=== PATIENT | female | born 1960 | race Caucasian/White ===

== ENCOUNTER → 2019-05-19 06:23 | Outpatient (CLI) | payer OTHER, SELFPAY ==
[2019-05-19 08:30] LABS: Cholesterol 168 mg/dL (200); High Density Lipoprotein 55 mg/dL; Triglycerides 152 mg/dL; Very Low Density Lipoprotein 30 mg/dL (5-40)
--- NOTE | 2019-05-19 13:30 | STRESSREP ---
Stress Test Report Stress Test Report Date: 05-19-19 Procedure: Exercise tolerance test/imaging study Indications: CAD; status post PCI Consent: Per the patient Procedure: The patient exercised on a Oneli protocol for 8 minutes completing Stage II and 2 minutes of Stage III achieving a peak heart rate of 151 bpm (92 % predicted maximal heart rate) with a peak blood pressure 184/72 mmHg and a peak MET capacity of 9 METs. The baseline ECG demonstrated normal sinus rhythm. The peak exercise ECG demonstrated [id number] nonspecific ST segment variability. There were no cardiac dysrhythmias pretest, during exercise, or recovery. The functional capacity was considered good. There was no complaint of chest discomfort during exercise or recovery. The examination was discontinued secondary to dyspnea. Impression: 1. Technically adequate (percent predicted maximal heart rate greater than 85%) exercise tolerance test 2. Peak exercise ECG with [id number] nonspecific ST segment variability 3. There were no cardiac dysrhythmias pretest, during exercise, or recovery 4. Nuclear images pending Myocardial perfusion imaging study: Technique: The patient was injected with 11.9 mCi of technetium 99m Cardiolite and subsequently rest SPECT Cardiolite nuclear imaging was obtained in the horizontal long, vertical long, and short axis views. The patient exercised on a Oneil protocol for 8 minutes completing Stage II and 2 minutes of Stage III achieving a peak heart rate of 151 bpm (92 % predicted maximal heart rate) with a peak blood pressure 184/72 mmHg and a peak MET capacity of 9 METs. The patient was injected with 34.1 mCi of technetium 99m Cardiolite and subsequently stress SPECT Cardiolite nuclear imaging was obtained in the horizontal long, vertical long, and short axis views. A gated Cardiolite study at peak stress was obtained. Interpretation: Rest and stress SPECT Cardiolite nuclear imaging status post realignment, normalization, and attenuation correction, demonstrates the appearance at rest of an area of diminished tracer uptake in portions of the distal anterior/anterior apical segments. Status post stress there are similar type findings although somewhat potentially more prominent. There is end systolic thickening and brightening. The gated Cardiolite study demonstrates diminished myocardial thickening/inward wall motion in the distal anterior segments. The reported LVEF is 68 %. Impression: 1. Rest and stress SPECT Cardiolite nuclear imaging demonstrate myocardial perfusion changes potentially compatible with an shifting soft tissue attenuation/artifact although an area of previous myocardial injury in the distal anterior/anterior apical segments with post stress related changes compatible with ahmet-infarct related myocardial ischemia cannot necessarily be excluded. 2. The gated Cardiolite study reports an LVEF of 68 %. This note was generated with [employer] software. It may contain incorrect words, spelling, and punctuation that were not noted in checking the note before signing. 05/19/19904 <Electronically signed by Олег Shook MD> Date Олег Shook MD CC: Julio Kee; Erich Drew III, MD; Олег Shook MD ~ Date Dictated: 05/19/19856 Date Transcribed: 05/19/19856 Database Consultant: ISABEL Tello
== END ==
PROVIDERS: Family Provider Family Medicine; PCP Family Medicine; Referring Provider Internal Medicine Interventional Cardiology; Visit Provider Internal Medicine Interventional Cardiology
DX: I25.10 Atherosclerotic heart disease of native coronary artery without angina pectoris (principal); E78.49 Other hyperlipidemia; Z72.0 Tobacco use; Z95.5 Presence of coronary angioplasty implant and graft
CPT/HCPCS: 36415; 78452; 80061; 93017; A9500; A4216

== ENCOUNTER 2022-04-21 08:50 | Outpatient (CLI) | payer OTHER, SELFPAY ==
[2022-04-21 10:05] LABS: ALB/GLOB Ratio 1.1 RATIO (0.9-2.4); AST(SGOT) 26 U/L (15-37); Alanine Aminotransfer ALT/SGPT 45 U/L (13-56); Albumin, Serum 3.7 g/dL (3.2-5.0); Alkaline Phosphatase 69 U/L (45-117); Anion Gap 6 (5-15); BUN 12 mg/dL (7-18); BUN/Creat Ratio 13.7 RATIO (10-20); Calcium,Total 8.8 mg/dL (8.5-10.1); Chloride 107 mmol/L (98-107); Cholesterol 145 mg/dL (200); Creatinine, Serum 0.88 mg/dL (0.55-1.02); EST Glomerular Filtration Rate 70 mL/min (>60); Est Glom Filt Rate - Afr Amer 85 mL/min (>60); Globulin 3.5 g/dL (2.2-4.2); Glucose 136 mg/dL (74-106); High Density Lipoprotein 52 mg/dL; Potassium 3.6 mmol/L (3.5-5.1); Protein, Total 7.2 g/dL (6.4-8.2); Sodium Level 140 mmol/L (136-145); Triglycerides 152 mg/dL; Very Low Density Lipoprotein 30 mg/dL (5-40)
== END 2022-04-21 23:59 | disposition home or self-care (01) ==
LOC: LAB 08:55
PROVIDERS: PCP Internal Medicine Pulmonary Disease
DX: I10 Essential (primary) hypertension (principal); E78.5 Hyperlipidemia, unspecified; Z72.0 Tobacco use; Z95.5 Presence of coronary angioplasty implant and graft
CPT/HCPCS: 36415; 80053; 80061

== ENCOUNTER 2023-02-10 17:17 | Emergency (ER) | payer OTHER, SELFPAY ==
[2023-02-10 17:18] VITALS: BP 188/106; PULSE 112; RESP 18; TEMP 36.1; O2SAT 96; BMI 33.7
--- NOTE | 2023-02-10 17:50 | EKG12_ITS ---
Test Reason : HTN Blood Pressure : / mmHG Vent. Rate : 089 BPM Atrial Rate : 089 BPM P-R Int : 180 ms QRS Dur : 066 ms QT Int : 356 ms P-R-T Axes : 036 -12 044 degrees QTc Int : 433 ms Normal sinus rhythm Inferior infarct , age undetermined Abnormal ECG Confirmed by JAI PATEL, PHOENIX ([id number]), script editor SAMARA MIRZA ([id number]) on 02/11/2023 9:08:07 AM Referred By: Confirmed By:PHOENIX VERGARA MD
[2023-02-10 18:11] VITALS: BP 164/98
--- NOTE | 2023-02-10 18:54 | EX.ED.DYSGE1 ---
HPI History of Present Illness Chief Complaint: Hypertension Narrative Narrative: Patient comes in with elevated blood pressure. 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 She saw orthopedic doctor had injections of her thumbs and it was elevated. Its been elevated the last few days. She is not having chest pain or shortness of breath. No headaches. No numbness tingling or weakness. She just has had blood pressure done a couple times very recently and her kidney function was all normal. She states she is never truly had blood pressure but she has been on metoprolol since 2008 when she had a heart attack. She is only on 12 and half milligrams a day. Nothing consistently makes her blood pressure better or worse. But it sounds like its been elevated pretty steadily for the recent past at least. She had one brgk-hig-[id number] cold medicine recently but that was a couple days ago so not likely affecting today's blood pressure. [facility] Medical History COPD (chronic obstructive pulmonary disease) Diabetes High cholesterol Post covid-19 condition, unspecified STEMI (ST elevation myocardial infarction) Home Medications naproxen 500 mg tablet 500 mg PO BID PRN #20 tabs 06/04/15 [Rx Last Taken Unknown] oxycodone-acetaminophen 5 mg-325 mg tablet 1 - 2 tab PO Q4H PRN PRN Pain #12 tabs 06/04/15 [Rx Last Taken Unknown] Allergy/AdvReac Type Severity Reaction Status Date / Time metformin Allergy Diarrhea Verified 02/10/23 17:19 Social History Smoking Status: Former smoker ROS ROS ED ROS Narrative A complete review of systems was performed and is negative except as documented in the history of present illness. Some specific details below. Constitutional: No recent fevers or chills. No malaise EYE: No discharge, visual complaints, or pain. ENT: Occasionally feels slightly flushed. CV: No chest pain palpitations or lightheadedness Respiratory: No cough or trouble breathing. GI: No abdominal pain. No nausea vomiting diarrhea. No blood in stool. : No frequency dysuria or hematuria. Musculoskeletal: No recent trauma. No pains. Mild ankle swelling. Skin: No rash. Nondiaphoretic. Neuro: No weakness or numbness. Endocrine: No polyuria or polydipsia. EXAM Physical Exam Narrative Exam Narrative: CONSTITUTIONAL: Patient is nontoxic in appearance. The patient looks comfortable. Work of breathing looks normal. HEENT: No notable trauma. Mucous membranes moist. EYES: No conjunctival injection. No proptosis. NECK:No JVD. No stridor. CARDIOVASCULAR: Regular rate. Regular rhythm. No notable murmur. No JVD. RESPIRATORY: No respiratory distress. Breathing is unlabored. No wheezes. No rhonchi. No rales. No pain with a deep breath. No chest wall tenderness. O2 saturations are normal at 96% on room air showing no hypoxia. GASTROINTESTINAL: Not distended. Bowel sounds are normal. No tenderness. GENITOURINARY: No tenderness over the bladder. No CVA tenderness. MUSCULOSKELETAL: Atraumatic. No notable peripheral edema. No cord. No asymmetry. No distended veins. NEUROLOGICAL: Patient is alert and appropriate. No focal deficit noted. SKIN: No noted rashes. No diaphoresis. PSYCHIATRIC: Patient is calm. Mood is appropriate. Const Vital Signs: 02/10/23 17:18 02/10/23 18:10 02/10/23 18:11 Temperature 97 F L Temperature Source Temporal Pulse Rate 112 H Respiratory Rate 18 Respiratory Effort Normal Respiratory Pattern Normal Blood Pressure 188/106 H 164/98 H Blood Pressure Mean 133 120 Pulse Ox 96 Oxygen Delivery Method Room Air MDM MDM MDM Narrative Medical decision making narrative: Patient really did not want blood work checked because it was just checked quite recently. With this unique case I think is reasonable. 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 We did recheck her blood pressure. She admitted to being very anxious about this being up. Her heart rate came down to the 80s. Her blood pressures come down to 160 over 90s. Although this blood pressure is still up it does not require acute therapy. But I think it is appropriate that we have her increase her meds. She will watch her heart rate. She will increase metoprolol to 20 5 in the morning. If she is not getting good blood pressure response and her heart rate is still above 60 she can increase to 25 twice a day. She should follow-up with her rent control office manager or primary physician for ongoing care though. EKG Initial EKG: Comments: My independent interpretation the patient's EKG shows a normal sinus rhythm with overall rate of 89. No ectopy. No acute ST elevation or depression. NH interval, QRS duration and QTc are normal. Discharge Plan Triage Chief Complaint: Hypertension ED Provider: Keith Graza Dx/Rx/DC Orders Clinical Impression: Elevated blood pressure reading Instructions: ED Hypertension, Established Prescriptions: No Action naproxen 500 MG tablet 500 mg PO BID PRN Qty: 20 0RF oxycodone-acetaminophen 1 TABLET tablet 1 - 2 tab PO Q4H PRN PRN (Reason: Pain) Qty: 12 0RF Primary Care Provider: Chris Winslow Referrals: Chris Winslow MD [Primary Care Provider] - 1 Week Activity Restrictions/Additional Instructions: Increase your metoprolol to 25 mg in the morning and 12-1/2 in the evening. If your heart rate is staying above 60 and your blood pressure is not controlled you may increase metoprolol to 25 mg twice a day. Disposition Disposition: Home, Self Care
== END 2023-02-10 20:05 | disposition home or self-care (01) ==
PROVIDERS: Emergency Provider Emergency Medicine; PCP Internal Medicine Pulmonary Disease; Visit Provider Emergency Medicine
DX: R03.0 Elevated blood-pressure reading, without diagnosis of hypertension (principal); J44.9 Chronic obstructive pulmonary disease, unspecified; E11.9 Type 2 diabetes mellitus without complications; E78.00 Pure hypercholesterolemia, unspecified; I25.2 Old myocardial infarction; Z86.16 Personal history of COVID-19; Z87.891 Personal history of nicotine dependence
CPT/HCPCS: 93005; 99282

== ENCOUNTER 2023-04-12 17:30 | Outpatient (RCR) | payer SELFPAY | END 2023-04-19 23:59 | LOC: NS 17:30 | PROVIDERS: PCP Internal Medicine Pulmonary Disease | DX: Z71.3 Dietary counseling and surveillance (principal); E11.9 Type 2 diabetes mellitus without complications ==

== ENCOUNTER → 2024-07-28 | Outpatient (CLI) | payer OTHER, SELFPAY ==
--- NOTE | 2024-07-28 07:35 | CDU_ITS ---
Reason For Study: Stenosis Rt. Velocities/BP Lt. Velocities/BP Prox CCA 91/23 cm/sec. Prox CCA 81.5/24.8 cm/sec. Mid CCA 89.1/23 cm/sec. Mid CCA 85.3/25.8 cm/sec. Dist CCA 78.7/24.8 cm/sec. Dist CCA 81.5/23 cm/sec. Prox ICA 84.4/21.1 cm/sec. Prox ICA 55.1/20.1 cm/sec. Mid ICA 86.3/23.9 cm/sec. Mid ICA 86.3/26.7 cm/sec. Dist ICA 76.8/28.6 cm/sec. Dist ICA 63/23.8 cm/sec. Rt. ICA/CCA = 0.97. Lt. ICA/CCA = 1.01. Prox ECA 92.9/14.5 cm/sec. Prox ECA 68.3/12.6 cm/sec. Rt. Vert. 56/17.3 cm/sec. Lt. Vert. 49.4/17.3 cm/sec. Right Extracranial There is intimal thickening but no significant atherosclerotic plaque noted in the right common carotid artery. There is homogeneous, smooth atherosclerotic plaque noted in the right internal carotid artery. There is intimal thickening but no significant atherosclerotic plaque noted in the right external carotid artery. Antegrade flow is noted in the right vertebral artery. Left Extracranial There is homogeneous, smooth atherosclerotic plaque noted in the left common carotid artery. There is heterogeneous, irregular atherosclerotic plaque noted in the left internal carotid artery. There is intimal thickening but no significant atherosclerotic plaque noted in the left external carotid artery. Antegrade flow is noted in the left vertebral artery. Procedure Carotid Duplex 31684. This is a Carotid Duplex examination using B-mode, color flow and specral Doppler. Exam performed in department. VL/Carotid Duplex Ultrasound Interpretation Summary Mild (<50%) stenosis right extracranial internal carotid. Mild (<50%) stenosis left extracranial internal carotid. Flow within the vertebral arteries is antegrade bilaterally. Ordering Physician: Kathrien Tellez Referring Physician: Kathrine Tellez Performed By: Jeanna Castro RVT
--- NOTE | 2024-07-28 07:38 | ART_ITS ---
Reason For Study: DM w/circulatory complications Procedure A bilateral lower extremity continuous wave Doppler with analog waveform analysis and ankle brachial indexes. Left Segmental Pressures Left brachial= 136mmHg. Left posterior tibial artery = 143mmHg. Left dorsalis pedis artery = 131mmHg. Left digit = 117 mmHg. The left dorsalis pedis waveforms are triphasic. The left posterior tibial artery waveforms are triphasic. Right Segmental Pressures Right brachial= 129mmHg. Right posterior tibial artery = 141mmHg. Right dorsalis pedis artery = 131mmHg. Right digit = 96 mmHg. The right dorsalis pedis waveforms are triphasic. The right posterior tibial artery waveforms are triphasic. Indices The right ankle brachial index by the dorsalis pedis is 0.96. The right ankle brachial index by the posterior tibial artery is 1.04. The right digital-brachial index is 0.71. The left ankle brachial index by the dorsalis pedis is 0.96. The left ankle brachial index by the posterior tibial artery is 1.05. The left post exercise ankle brachial index is 0.86. VL/Ankle Brachial Index Interpretation Summary Triphasic Doppler waveforms are noted at ankle level bilaterally. Pulse-volume recordings are diminished at digital level bilaterally, but satisfactory at ankle level bilate rally. Resting ankle- brachial indices are normal bilaterally. Digital-brachial indices are normal bi laterally. There is no evidence of significant arterial occlusive disease in the lower ext remities bilaterally. Ordering Physician: Nishi Tellez Referring Physician: NISHI TELLEZ MD Performed By: Jeanna Castro RVT
== END | disposition home or self-care (01) ==
LOC: CVS 07:30
PROVIDERS: PCP Internal Medicine Geriatric Medicine; Referring Provider Internal Medicine Geriatric Medicine; Visit Provider Internal Medicine Geriatric Medicine
DX: E11.59 Type 2 diabetes mellitus with other circulatory complications (principal); J44.9 Chronic obstructive pulmonary disease, unspecified; I65.29 Occlusion and stenosis of unspecified carotid artery
CPT/HCPCS: 93880; 93922